=== PATIENT | male | born 1965 | race Caucasian/White ===

== ENCOUNTER 2020-07-03 18:40 | Emergency (ER) | payer OTHER ==
[~2020-07-03] VITALS: Ht 180.3 cm; Wt 72.6 kg
[2020-07-03 18:41] VITALS: Ht 180.3 cm; Wt 72.6 kg
[2020-07-03 20:37] VITALS: BP 118/82
== END 2020-07-03 20:38 | disposition home or self-care (01) ==
LOC: ED 18:40
DX: J18.9 Pneumonia, unspecified organism (principal); F17.210 Nicotine dependence, cigarettes, uncomplicated; E78.00 Pure hypercholesterolemia, unspecified; Z20.828 Contact with and (suspected) exposure to other viral communicable diseases